=== PATIENT | male | born 1960 | race Caucasian/White ===

== ENCOUNTER 2022-01-11 08:06 | Day surgery (SDC) | payer OTHER ==
[~2022-01-11] VITALS: Ht 175.3 cm; Wt 90.7 kg
[2022-01-11] MEDS ORDERED: DIPHENHYDRAMINE INJ 50 MG/ML VIAL ONE (08:44)
[2022-01-11] MEDS: MIDAZOLAM HCL 5 MG/5 ML VIAL ONE ×2 (11:29→11:33)
[2022-01-11] MEDS ORDERED: BUPIVACAINE /PF 0.25% 30 ML VIAL INJ ONE (11:40)
[2022-01-11] MEDS ORDERED: methylPREDNISolone ACETATE 40 MG/ML ONE (11:40)
[2022-01-11] MEDS ORDERED: LIDOCAINE 2%, 20 ML MDV ONE (11:40)
[2022-01-11] MEDS ORDERED: IOHEXOL 300mgI/mL,100 ML INFUS..BTL IV ONE (11:40)
[2022-01-11 15:49] VITALS: BP_SYST 102
== END 2022-01-11 12:30 | disposition home or self-care (01) ==
LOC: SMU 08:06 → SDS 08:06
PROVIDERS: ATTEND Internal Medicine
DX: M47.816 Spondylosis without myelopathy or radiculopathy, lumbar region (principal); G89.4 Chronic pain syndrome; Z20.822 Contact with and (suspected) exposure to COVID-19; Z79.899 Other long term (current) drug therapy
CPT/HCPCS: 36415 ×2; 64493; 87426; U0003; J3490; J1200; J2001; J1030; J2250; Q9967; 76000